=== PATIENT | female | born 1950 | race Caucasian/White ===

== ENCOUNTER → 2017-08-27 | Outpatient (CLI) | payer MEDICARE, SELFPAY ==
[2017-08-27 18:54] LABS: Influenza A Negative (NEGATIVE); Influenza B Negative (NEGATIVE)
== END | disposition home or self-care (01) ==
LOC: LAB 17:18 → LAB SHORT 17:18
PROVIDERS: Internal Medicine
DX: R09.89 Other specified symptoms and signs involving the circulatory and respiratory systems (principal); R50.9 Fever, unspecified; R05 Cough
CPT/HCPCS: 87804

== ENCOUNTER 2018-12-03 09:35 | Day surgery (SDC) | payer MEDICARE, OTHER ==
[~2018-12-03] VITALS: Ht 160 cm; Wt 126.0 kg
--- NOTE | 2018-12-03 10:14 | NUR ---
12/03/18 1014 Hortencia Ansari V PT RESTING IN BED, SIDE RAILS IN PLACE, CALL LIGHT WITHIN REACH, VSS. PT TEACHING COMPLETED. PT DENIES PAIN, DISCOMFORT, ABND QUESTIONS AT THIS TIME.
[2018-12-03] MEDS ORDERED: GLIP10 PO (10:21)
[2018-12-03] MEDS ORDERED: SITA100T2 PO (10:21)
[2018-12-03] MEDS ORDERED: PIOG30 PO (10:22)
[2018-12-03] MEDS ORDERED: METF500 PO (10:22)
[2018-12-03] MEDS ORDERED: Pravachol40 MG PO (10:22)
[2018-12-03] MEDS ORDERED: LOSA25 PO (10:23)
[2018-12-03] MEDS ORDERED: METO50ER PO (10:24)
[2018-12-03] MEDS ORDERED: VENL25 PO (10:24)
[2018-12-03] MEDS ORDERED: STELARA90 MG/1 ML SC (10:25)
[2018-12-03] MEDS ORDERED: GABA300 PO (10:26)
[2018-12-03] MEDS ORDERED: ABILIFY MYCITE2 MG PO (10:27)
[2018-12-03] MEDS ORDERED: CLOB.05TO TOP (10:27)
[2018-12-03] MEDS ORDERED: LO-DOSE ASPIRIN81 MG PO (10:28)
[2018-12-03] MEDS ORDERED: NYSTRITC TOP (10:28)
== END 2018-12-03 12:27 | disposition home or self-care (01) ==
LOC: ORSCSDS 09:35
PROVIDERS: Surgery
PROC: 0JB60ZZ Excision of Chest Subcutaneous Tissue and Fascia, Open Approach (ICD-10-PCS; principal; 2018-12-03 10:45)
PROC: 0JBD0ZX Excision of Right Upper Arm Subcutaneous Tissue and Fascia, Open Approach, Diagnostic (ICD-10-PCS; principal; 2018-12-03 10:45)
DX: D17.1 Benign lipomatous neoplasm of skin and subcutaneous tissue of trunk (principal); I10 Essential (primary) hypertension; G47.33 Obstructive sleep apnea (adult) (pediatric); E11.9 Type 2 diabetes mellitus without complications; E66.01 Morbid (severe) obesity due to excess calories; Z68.42 Body mass index [BMI] 45.0-49.9, adult; Z79.899 Other long term (current) drug therapy; Z79.82 Long term (current) use of aspirin
CPT/HCPCS: 82947; 88304; J0690; J1100; J2001; J2250; J2405; J2704; J7120